=== PATIENT | female | born 1995 | race African-American/Black ===

== ENCOUNTER 2017-07-11 20:03 | Observation (INO) | payer MEDICAID ==
[~2017-07-11] VITALS: Ht 162.6 cm; Wt 72.6 kg
[2017-07-11] MEDS ORDERED: PNV1TABL76 MT (20:55)
[2017-07-11] MEDS ORDERED: FOLI-43 PO (20:55)
== END 2017-07-11 21:42 | disposition home or self-care (01) ==
LOC: L&D 20:03
PROVIDERS: ADMIT Specialist; ATTEND Specialist
DX: O26.893 Other specified pregnancy related conditions, third trimester (principal); R10.9 Unspecified abdominal pain; Z3A.36 36 weeks gestation of pregnancy
CPT/HCPCS: 99281; G0378

== ENCOUNTER 2020-01-24 10:08 | Emergency (ER) | payer MEDICAID ==
[~2020-01-24] VITALS: Ht 165.1 cm; Wt 62.0 kg
[~2020-01-24 10:08] MED LIST: FOLI-43 PO; PNV1TABL76 MT
[2020-01-24] MEDS ORDERED: ACETAMINOPHEN 325MG TABLET PO ONE (10:45)
[2020-01-24 11:48] VITALS: BP 105/73
== END 2020-01-24 11:58 | disposition home or self-care (01) ==
LOC: ER 10:08
DX: S93.491A Sprain of other ligament of right ankle, initial encounter (principal); Y93.89 Activity, other specified; Y92.89 Other specified places as the place of occurrence of the external cause; Y99.8 Other external cause status; X50.0XXA Overexertion from strenuous movement or load, initial encounter
CPT/HCPCS: 73610; 81025; 99283

== ENCOUNTER 2024-01-12 22:38 | Emergency (ER) | payer MEDICAID, OTHER ==
[~2024-01-12] VITALS: Ht 162.6 cm; Wt 61.0 kg
[2024-01-12 22:50] VITALS: BP 132/86; PULSE 84; RESP 18; TEMP 98.4; O2SAT 98
[2024-01-12] MEDS: TETANUS, DIPHTHERIA, PERTUSSIS VAC/PF 0.5ML (>10YR OLD) IM ONE (23:46)
== END 2024-01-13 01:50 | disposition home or self-care (01) ==
LOC: ER 22:38
DX: S09.90XA Unspecified injury of head, initial encounter (principal); X58.XXXA Exposure to other specified factors, initial encounter; Y93.89 Activity, other specified; Y92.89 Other specified places as the place of occurrence of the external cause; Y99.8 Other external cause status
CPT/HCPCS: 81025; 90471; 90715; 99285

== ENCOUNTER 2024-08-07 11:04 | Emergency (ER) | payer MEDICAID, OTHER ==
[~2024-08-07] VITALS: Ht 162.6 cm; Wt 60.0 kg
[2024-08-07 11:30] VITALS: O2SAT 98
[2024-08-07] MEDS: IBUPROFEN 600MG TABLET PO ONE (11:45)
[2024-08-07] MEDS ORDERED: IBUP-2029 MT (12:22)
[2024-08-07] MEDS ORDERED: ACET325T52 MT (13:46)
[2024-08-07 15:07] VITALS: BP 118/70; PULSE 91; RESP 18; TEMP 36.61404; O2SAT 98
== END 2024-08-07 15:08 | disposition home or self-care (01) ==
LOC: ER 11:04
DX: S89.91XA Unspecified injury of right lower leg, initial encounter (principal); W18.39XA Other fall on same level, initial encounter; Y93.89 Activity, other specified; Y92.89 Other specified places as the place of occurrence of the external cause; Y99.8 Other external cause status
CPT/HCPCS: 73562; 99283; Z7610